=== PATIENT | male | born 1975 | race Caucasian/White ===

== ENCOUNTER 2017-02-09 20:04 | Inpatient (IN) | payer OTHER ==
[~2017-02-09] VITALS: Ht 193 cm; Wt 79.4 kg
--- NOTE | ~2017-02-09 | PN ---
Unit #: [id number] #: [id number] Patient: KAJAL PANTOJA [id number] [facility] [address] [place] [address] [id number] I MR#: [id number] NAME: KAJAL PANTOJA ROOM: [facility] Age: 41 Sex: M Admission Date: 02/09/2017 : 1975 Attending Physician: Letty Ordaz M.D. Admitting Physician: Letty Ordaz M.D. Primary Care Physician: Primary Care Physician Vanessa TOLLIVER PROGRESS NOTES DATE 02/13/2017 DISCUSSION Mr. Pantoja is a 41-year-old white male who was seen today and chart was reviewed and case was discussed with the staff. He has been anxious, withdrawn and rather seclusive to himself. Meanwhile, he has been cooperative with treatment recommendations and has been taking the medications and tolerating them fairly well with no reported side effects. MENTAL STATUS EXAMINATION Young white male who was casually dressed with fair personal hygiene and appears to be in no acute distress or discomfort. He was awake and alert on interaction with intact orientation. His mood was anxious with congruent affect. His speech is slow and goal-directed. He denies any suicidal or homicidal ideation and also denies any auditory or visual hallucinations. His insight and judgement remains slightly impaired. TREATMENT PLAN 1. Will continue on his current medications and treatment protocol. Will monitor his response to medications and make further adjustments as needed. 2. Will continue to follow up. Dictated by... Mirza Delgado/cora TD: 02/13/2017 18:37 JOB #: [id number] Unit #: [id number] #: [id number] Patient: KAJAL PANTOJA PROGRESS NOTES Page 1 of 1 X Letty Ordaz MD PROGRESS NOTE
--- NOTE | ~2017-02-09 | A ---
[facility] Nutrition Therapy DATE: 02/10/17 Patient: KAJAL PANTOJA Physician: KYRIE Address: [address] Room/Bed: [address], Zip: [place] [address] Admit Date: 02/09/17 Date of : [birth year] Height: 6 4 Weight: 174 79.3786 NUTRITIONAL ASSESSMENT: REASON: UNINTENTIONAL WEIGHT LOSS PATIENT ADMITTED FOR SI AND DEPRESSION PMH: CAD, ARTHRITIS, HTN Anthropometrics: HT: 76", WT: 175#, BMI: 21.3, %IBW: 87 Labs: NO LABS AVAILABLE Meds: DESYREL, BUSPAR, EFFEXOR-XR, SEROQUEL Assessment: PATIENT IS A 41 Y/O MALE ADMITTED FOR SI AND DEPRESSION. PATIENT IS CURRENTLY UNEMPLOYED, ON DISABILITY, LIVES AT A PENITENTIARY HOUSE, SMOKES 1 PPD, AND DENIES SUBSTANCE ABUSE FOR LAST 25 YEARS. HE HAS A HX OF MARIJUANA, ETOH, COCAINE, AND XANAX USE AND HE ALSO HAS A HX OF INPATIENT PSYCH HOSPITALIZATION. PER NEEDS ASSESSMENT PATIENT STATED A POOR APPETITE WITH NO RECENT WEIGHT LOSS, HE HASN'T EATEN IN A WEEK D/T WANTING TO STARVE HIMSELF, HE HAS NOT BEEN SLEEPING, AND HE HAS POOR PERSONAL HYGIENE. WEIGHT HX PER [employer] NOT WEIGHT CHANGE X 1 YEAR, AND HIS UBW IS ~170# FOR THE LAST 7 YEARS. THERE ARE NO CURRENT PO INTAKES AVAILABLE. THERE ARE NO SKIN OR GI ISSUES NOTED ATT, HOWEVER PATIENT DOES APPEAR TO HAVE SOME BUG BITES ON HIS FEET. HE IS CURRENTLY ON A REGULAR DIET. PATIENT'S BMI IS WITHIN A HEALTHY RANGE AND HE IS 87% OF HIS IBW %. Dx: POSSIBLE INADEQUATE PO INTAKES R/T DEPRESSION, SI AEB PATIENT POSSIBLY NOT EATING FOR LAST WEEK, TRYING TO STARVE HIMSELF Intervention: REGULAR DIET, MEDS PER MD, PSYCH Monitoring, Evaluation and Goals: 1. ADEQUATE PO INTAKES >50% OF MEALS 2. PREVENT, CORRECT MICRO/MACRO NUTRIENT DEFICIENCIES 3. WEIGHT; MAINTAIN CURRENT WEIGHT, PREVENT WEIGHT LOSS MONITOR: WEIGHTS, LABS, PO/FLUID INTAKES Recommendations: 1. CONTINUE REGULAR DIET TOLERATED. OFFER SNACKS BETWEEN MEALS. IF PATIENT HAS C/O HUNGER OR WOULD LIKE LARGER PORTIONS PLEASE SEND ORDER FOR LARGE PORTIONS AND RD WILL APPROVE [facility] Nutrition Therapy DATE: 02/10/17 Patient: KAJAL PANTOJA Physician: KYRIE Address: [address] Room/Bed: [address], Zip: [place] [address] Admit Date: 02/09/17 Date of : [birth year] Height: 6 4 Weight: 174 79.3786 2. ENCOURAGE ADEQUATE PO AND FLUID INTAKES 3. OBTAIN WEIGHTS ROUTINELY (EVERY 3-4 DAYS) 4. IF PO INTAKES ARE BELOW 50% OF MEALS PLEASE ORDER ENSURE BID TO PROMOTE ADEQUATE KCAL AND PROTEIN INTAKES RD TO F/U PER PROTOCOL AND PRN R/T PATIENT MILDLY COMPROMISED Respectfully, SAVI MCGEE, ERICH, LD [employer] [facility] cc: client file
--- NOTE | ~2017-02-09 | DS ---
Unit #: [id number] #: [id number] Patient: [facility]JA [id number] [facility] [address] [place] [address] [id number] I MR#: [id number] NAME: KAJAL PANTOJA ROOM: [facility] Age: 41 Sex: M Admission Date: 02/09/2017 : 1975 Discharge Date: 02/15/2017 Attending Physician: Letty Ordaz M.D. Primary Care Physician: Primary Care Physician No DISCHARGE SUMMARY REASON FOR ADMISSION Mr. Pantoja is a 41-year-old single white male, who is a resident of [place], [place], and is known to use from previous encounters, self-referred to the hospital on a voluntary basis. HISTORY OF PRESENT ILLNESS Please see initial psychiatric evaluation for details. PAST PSYCHIATRIC HISTORY Please see initial psychiatric evaluation for details. PAST MEDICAL HISTORY Please see initial psychiatric evaluation for details. HOSPITAL COURSE The patient was admitted to the Adult Psychiatric and Chemical Dependence Unit at [facility] celeste Reid, oriented to the hospital environment. Routine p.r.n. medications were initiated and he was started back on his home medications, and was closely monitored. He was initially seen to be anxious, withdrawn, and rather seclusive to himself though he was cooperative with the treatment recommendations, and was able to show a decent therapeutic response to the medications with improvement in his depression and anxiety, and was denying any suicidal ideations, intent, or plan and as such it was decided that he will be discharged home and will continue treatment on an outpatient basis. DISCHARGE DIAGNOSES Psychiatric: [place] I Major depressive disorder, recurrent, moderate, without psychotic features. [place] II [place] III Arthritis. [place] IV Moderate psychosocial stressors. [place] V CONDITION AT DISCHARGE Stable. PROGNOSIS Fair. Unit #: [id number] #: [id number] Patient: KAJAL PANTOJA Dictated by... Mirza Delgado/sage TD: 02/17/2017 07:46 JOB #: [id number] DISCHARGE SUMMARY Page 1 of 1 X Letty Ordaz MD DISCHARGE SUMMARY
--- NOTE | ~2017-02-09 | PN ---
Unit #: [id number] #: [id number] Patient: KAJAL PANTOJA [id number] [facility] [address] [place] [address] [id number] MR#: [id number] NAME: KAJAL PANTOJA ROOM: [facility] Age: 41 Sex: M Admission Date: 02/09/2017 : 1975 Attending Physician: Letty Ordaz M.D. Admitting Physician: Letty Ordaz M.D. Primary Care Physician: Primary Care Physician Vanessa TOLLIVER PROGRESS NOTES DATE 02/11/2017 DISCUSSION Mr. Pantoja is a 41-year-old white male who was seen today and chart was reviewed and case was discussed with the staff who report persistent depression and anxiety. Meanwhile, he has been cooperative with treatment recommendations and has been taking medications and tolerating them fairly well with no reported side effects. MENTAL STATUS EXAMINATION Middle-aged white male who was casually dressed with fair personal hygiene and appears to be in no acute distress or discomfort. He was awake and alert on interaction with intact orientation. His mood was anxious with congruent affect. His speech is slow and goal-directed. He denies any suicidal or homicidal ideations. His insight and judgement remains slightly impaired. TREATMENT PLAN 1. Will continue on his current medications and treatment protocol. Will monitor his response to the medications and make further adjustments as needed. 2. Will continue to follow up. Dictated by... Mirza Delgado/cora TD: 02/11/2017 19:51 JOB #: [id number] Unit #: [id number] #: [id number] Patient: KAJAL PANTOJA PROGRESS NOTES Page 1 of 1 X Letty Ordaz MD PROGRESS NOTE
--- NOTE | ~2017-02-09 | CO ---
Unit #: [id number] #: [id number] Patient: KAJAL PANTOJA [id number] [place] [address] [id number] MR#: [id number] NAME: KAJAL PANTOJA ROOM: [facility] Age: 41 Sex: M Admission Date: 02/09/2017 : 1975 Attending Physician: Letty Ordaz M.D. Consultation Date: 02/10/2017 CONSULTATION REPORT SUBJECTIVE Kajal is a 41-year-old who complained of itchy insect bites on the top of his feet. We have been asked to assess and treat. The patient had may be 1 or 2 small insect bites on the top of his feet. There was evidence of excoriation. We started hydrocortisone cream 1% b.i.d. p.r.n. Dictated by... Ros Whitaker P.A.-C. for Mirza Sneed/nola TD: 02/19/2017 16:11 JOB #: [id number] CONSULTATION REPORT Page 1 of 1 X Ros Whitaker CONSULTATION REPORT
--- NOTE | ~2017-02-09 | PN ---
Unit #: [id number] #: [id number] Patient: KAJAL PANTOJA [id number] [facility] [address] [place] [address] [id number] I MR#: [id number] NAME: KAJAL PANTOJA ROOM: [facility] Age: 41 Sex: M Admission Date: 02/09/2017 : 1975 Attending Physician: Letty Ordaz M.D. Admitting Physician: Letty Ordaz M.D. Primary Care Physician: Primary Care Physician Vanessa VEGA NOTES DATE February 14, 2017 DISCUSSION Mr. Pantoja is a 41-year-old white male, who was seen today and chart was reviewed and the case was discussed with the staff. He has been anxious, withdrawn, and rather seclusive to himself. Meanwhile, he has been cooperative with the treatment recommendations and he has been taking the medications and tolerating them fairly well with no reported side effects. MENTAL STATUS EXAMINATION Middle-aged white male, who was casually dressed with fair personal hygiene and appears to be in no acute distress or discomfort. He was awake and alert on interaction with intact orientation. His mood is anxious with a congruent affect. He denies any suicidal or homicidal ideations. His insight and judgment remain slightly impaired. TREATMENT PLAN 1. We will continue him on his current medications and treatment protocol, and will monitor his response to the medications, and make further adjustments as needed. 2. We will continue to followup. Dictated by... Mirza Delgado/sage TD: 02/15/2017 10:04 JOB #: [id number] Unit #: [id number] #: [id number] Patient: KAJAL PANTOJA UNRULY VEGA NOTES Page 1 of 1 X Letty Ordaz MD PROGRESS NOTE
--- NOTE | ~2017-02-09 | HP ---
Unit #: [id number] #: [id number] Patient: KAJAL PANTOJA [id number] [place] [address] [id number] I MR#: [id number] NAME: KAJAL PANTOJA ROOM: 63 Age: 41 Sex: M Admission Date: 02/09/2017 : 1975 Attending Physician: Letty Ordaz M.D. Admitting Physician: Letty Ordaz M.D. Primary Care Physician: Primary Care Physician No HISTORY AND PHYSICAL HISTORY OF PRESENT ILLNESS Kajal is a 41 year old admitted to [address] [place] [address] with depression and verbalizing wanting to hurt himself. He has had numerous admissions to this facility. PAST MEDICAL HISTORY 1. Alopecia. 2. Psoriasis. 3. Coronary artery disease. a. Angioplasty with stents. PAST SURGICAL HISTORY Bilateral hands. ALLERGIES No known drug allergies. SOCIAL HISTORY Smokes one pack per day. Denies alcohol and illicit drug use. FAMILY HISTORY Medically noncontributory. REVIEW OF SYSTEMS CONSTITUTIONAL: No fever or chills. HEENT: Denies any sore throat, ear pain or runny nose. CARDIOVASCULAR: Denies chest pain, irregular heart rhythm or palpitations. CHEST: Denies shortness of breath or cough. No hemoptysis. GASTROINTESTINAL: Denies nausea, vomiting, diarrhea or chronic constipation. ENDOCRINE: Denies history of increased thirst or urination. No recent significant weight loss or gain. GENITOURINARY: Denies dysuria, frequency, or hematuria. SKIN: Denies any rashes. HEMATOLOGIC: Denies history of increased bleeding or bruising. MUSCULOSKELETAL: Denies any hot, swollen joints. No generalized muscle pain. NEUROLOGIC: Denies problems with vision or speech. No frequent, severe headaches. No numbness, tingling or weakness in any extremities. Denies loss of bladder or bowel control. CURRENT MEDICATIONS 1. Nicotine patch 14 mg q. day. Unit #: [id number] #: [id number] Patient: KAJAL PANTOJA 2. Desyrel 100 mg q.h.s. p.r.n. 3. Milk of Magnesia p.r.n. 4. Maalox p.r.n. 5. Tylenol p.r.n. 6. BuSpar 10 mg t.i.d. 7. Effexor XR 150 mg b.i.d. 8. Seroquel 200 mg q.h.s. PHYSICAL EXAMINATION GENERAL: Alert, well nourished. No apparent distress. VITAL SIGNS: Blood pressure 132/84, heart rate 84, respirations 16, and temperature 98.6. WEIGHT: 175. HEIGHT: 6 feet 4 inches. SKIN: Warm and dry. His body is devoid of hair. Nails show significant pitting. Psoriatic plaques noted. HEENT: Normocephalic. TMs not viewed. Oral and nasal passages clear. Conjunctivae clear. PERRLA. EOMs intact. NECK: Supple without lymphadenopathy or thyromegaly. HEART: Regular rate and rhythm without murmur. LUNGS: Clear. ABDOMEN: Soft, nontender. : Not done. EXTREMITIES: No evidence of cyanosis, clubbing or edema. Moves all without focal deficit. NEUROLOGICAL: Grossly within normal limits. Cranial Nerves: II: Visual casanova are intact. III, IV AND : Extraocular movements are intact. Pupils are equal, round and reactive to light. V: Facial sensation is grossly normal. VII: Facial movements and expression are normal. VIII: Auditory acuity grossly intact. IX, X: Uvula is midline. Phonation is normal. XI: Patient shrugs shoulders and turns head normally. XII: Tongue protrudes in the midline. Sensory and Motor Function: Sensory and motor sensation is grossly normal. Motor: moves all extremities well. Coordination: Gait is normal. Deep Tendon Reflexes: Intact. IMPRESSION Psychiatric admission. RECOMMENDATIONS PSYCHIATRIC: Per psychiatrist. MEDICAL: I see no contraindication to participate in this facility's activities. MEDICAL PROGNOSIS Good. MEDICAL CONDITION Stable. Dictated by... Ros Whitaker P.A.-C. for Aj Boothe M.D. Unit #: [id number] #: [id number] Patient: KAJAL PANTOJA RONNI/catalinog TD: 02/10/2017 10:46 JOB #: [id number] HISTORY AND PHYSICAL Page 1 of 1 X Ros Whitaker HISTORY AND PHYSICAL
--- NOTE | ~2017-02-09 | PA ---
Unit #: [id number] #: [id number] Patient: KAJAL PANTOJA [id number] [facility] [address] [place] [address] [id number] I MR#: [id number] NAME: KAJAL PANTOJA ROOM: 63 Age: 41 Sex: M Admission Date: 02/09/2017 : 1975 Date of Assessment: 02/10/2017 Attending Physician: Letty Ordaz M.D. Admitting Physician: Letty Ordaz M.D. Primary Care Physician: Primary Care Physician No PSYCHIATRIC ASSESSMENT DATE OF SERVICE 02/10/2017. IDENTIFYING DATA Mr. Pantoja is a 41-year-old single white male, who is a resident of [place], [place], and is known to me from previous encounter, was self-referred to the hospital on a voluntary basis. CHIEF COMPLAINT "My medications are not working. I'm suicidal." HISTORY OF PRESENT ILLNESS Mr. Pantoja is a 41-year-old white male with long history of mood disorder, who was self-referred to the program stating that he has a lot of stuff that has been making him depressed and his medications are not working and he lives in a [facility] house and he is on parole and kept repeating throughout the assessment that he did not care anyone and that no one care about him and that he wrote a suicide note yesterday stating that he wanted to kill himself, and the staff at the [facility] found it and did not care and reports that he has tried to cut himself in the past and he walked out into the traffic on [address] today because he was tired of not having any money. He feels like he will not get off parole, even though he has not done anything wrong and he does not want to get in trouble and risk not coming off the parole and does not want to go back to half-way and does report increasing depression, anxiety, feelings of hopelessness and helplessness, and suicidal ideations with intent and plan and as such, recommendation for inpatient level of care for safety and stabilization was made and the patient stepped up to the inpatient unit. SUBSTANCE ABUSE HISTORY The patient reports history of experimentation with alcohol, cannabis, and cocaine in the past, but reports that he has not done any drugs in over 20 years. PAST PSYCHIATRIC HISTORY The patient has had history of multiple inpatient psychiatric hospitalizations at [facility] in addition to being at [facility], and has been diagnosed and treated for mood disorder and supposed to be on Seroquel, Effexor, and BuSpar, though it is not clear if he has been compliant with the medication as he does not appear to be showing a therapeutic response. However, he reports that he is currently active with [facility]. PAST MEDICAL HISTORY Unit #: [id number] #: [id number] Patient: KAJAL PANTOJA The patient's medical history is significant for arthritis. ALLERGIES No known medication allergies. PERSONAL AND SOCIAL HISTORY A 41-year-old white male, who reports that he is single, unemployed, disabled, and lives in a [facility] house and reports poor social support system. MENTAL STATUS EXAMINATION Middle-aged white male who was casually dressed with fair personal hygiene, appears to be in no acute distress or discomfort. He was awake and alert on interaction with intact orientation to time, place, and person. His mood was anxious and depressed with a congruent affect. His speech was slow and restricted in content. His thought processes were disorganized with some looseness of associations and suicidal ideations. His insight and judgment remain significantly impaired. DIAGNOSTIC IMPRESSION Psychiatric: Major depressive disorder, recurrent, moderate, without psychotic features. Medical: Arthritis. Stressors: Moderate psychosocial stressors. TREATMENT PLAN 1. The patient has presented with history of mood disorder, and has been decompensating and will need inpatient hospitalization for safety and stabilization. We will start him back on his home medications. We will adjust the medications and monitor response. 2. Supportive therapy was provided to the patient. 3. Safe, structured, and nourishing environment will be provided. ESTIMATED LENGTH OF STAY 4 to 5 days. ABILITY TO HELP SELF Limited. WILLINGNESS TO HELP SELF The patient appears to be willing to help self. STRENGTHS 1. Communicative. 2. Cooperative. PROBLEMS 1. Chronic dysphoric symptoms. 2. Poor social support system. DISCHARGE CRITERIA This will be contingent upon the patient's ability to show resolution of his depression and anxiety and his ability to stay safe to himself, particularly after discharge from the hospital. Dictated by... Letty Ordaz M.D. Unit #: [id number] #: [id number] Patient: KAJAL PANTOJA/nola TD: 02/10/2017 08:20 JOB #: [id number] PSYCHIATRIC ASSESSMENT Page 1 of 1 X Letty Ordaz MD PSYCHIATRIC ASSESSMENT
--- NOTE | ~2017-02-09 | TN ---
Unit #: [id number] #: [id number] Patient: KAJAL PANTOJA [id number] [place] [address] [id number] I MR#: [id number] NAME: KAJAL PANTOJA ROOM: [facility] Age: 41 Sex: M Admission Date: 02/09/2017 : 1975 Discharge Date: 02/15/2017 Attending Physician: Letty Ordaz M.D. Primary Care Physician: Primary Care Physician No LOC TRANSFER NOTE DATE OF SERVICE: 02/25/2017 HISTORY OF PRESENT ILLNESS Mr. Pantoja is a 41-year-old single white male with history of mood disorder, who is a resident of [place], [place], and was stepped down to the outpatient treatment program from the adult inpatient psychiatric unit, where he was hospitalized under my care on the Adult Psychiatric Unit at [facility]. He was brought to the hospital with suicidal ideation and stated that he got out and was supposed to start outpatient treatment program and he did not have any money to get there and find a way to get there and stated that it was too late and he needed to be re-evaluated, so he got re-evaluated and he reports that he gets suicidal a lot and I want to get that way and that he thinks outpatient help him as he can deny any current suicidal ideations, though he does report some persistent depressive symptoms and as such, recommendation for the patient to be enrolled into the intensive outpatient treatment program was made. SUBSTANCE ABUSE HISTORY The patient denies any alcohol or drug abuse. PAST PSYCHIATRIC HISTORY The patient has a history of multiple inpatient psychiatric hospitalizations across different facilities including being at [facility] and [facility], has been diagnosed and treated for mood disorder, but has been noncompliant with medications. Once again, he has been not taking his medications. PAST MEDICAL HISTORY History of arthritis and alopecia. ALLERGIES No known medication allergies. PERSONAL AND SOCIAL HISTORY A 41-year-old white male, who reports that he is single, unemployed, and lives in a retirement house and has poor social support system. MENTAL STATUS EXAMINATION Middle-aged white male, who was casually dressed with fair personal hygiene, appears to be in no acute distress or discomfort. He was awake and alert on interaction with intact orientation. His mood was anxious and depressed with a congruent affect. His speech was slow and goal directed. He denies any suicidal or homicidal ideations and also denies Unit #: [id number] #: [id number] Patient: KAJAL PANTOJA any auditory or visual hallucinations. His insight and judgment remain slightly impaired. DIAGNOSTIC IMPRESSION Psychiatric: Major depressive disorder, recurrent, moderate, without psychotic features. Medical: None. Stressors: Moderate psychosocial stressors. TREATMENT PLAN 1. The patient has presented with history of mood disorder. We will recommend enrolling him into the outpatient treatment program and maintaining and restarting her back on his home medications. We will adjust the medications and monitor response. 2. Supportive therapy was provided to the patient. 3. Safe, structured, and nourishing environment will be provided. ESTIMATED LENGTH OF STAY 14 to 21 days. ABILITY TO HELP SELF Limited. WILLINGNESS TO HELP SELF The patient appears to be willing to help self. STRENGTHS 1. Communicative. 2. Cooperative. PROBLEMS 1. Chronic dysphoric symptoms. 2. Poor social support system. DISCHARGE CRITERIA This will be contingent upon the patient's ability to show resolution of his depression and anxiety and his ability to stay safe to himself, particularly after discharge from the hospital. Dictated by... Mirza Delgado/nola TD: 02/26/2017 07:09 JOB #: [id number] Unit #: [id number] #: [id number] Patient: KAJAL PANTOJA LOC TRANSFER NOTE Page 1 of 1 X Letty Ordaz MD X LOC TRANSFER NOTE
--- NOTE | ~2017-02-09 | PN ---
Unit #: [id number] #: [id number] Patient: KAJAL PANTOJA [id number] [facility] [address] [place] [address] [id number] MR#: [id number] NAME: KAJAL PANTOJA ROOM: [facility] Age: 41 Sex: M Admission Date: 02/09/2017 : 1975 Attending Physician: Letty Ordaz M.D. Admitting Physician: Letty Ordaz M.D. Primary Care Physician: Primary Care Physician Vanessa VEGA NOTES DATE OF SERVICE 02/12/2017 DISCUSSION Mr. Pantoja is a 41-year-old white male who was seen today. Chart was reviewed and case was discussed with the staff. He remains anxious, withdrawn, depressed, and rather seclusive to himself with blunted affect and minimal interaction. Meanwhile, he has been taking the medications and tolerating them fairly well with no reported side effects. MENTAL STATUS EXAMINATION Middle-aged white male who is casually dressed with fair personal hygiene, appears to be in no acute distress or discomfort. He was awake and alert on interaction with intact orientation. His mood is anxious with congruent affect. Speech is slow and goal-directed. He denies any suicidal or homicidal ideations and also denies any auditory or visual hallucinations. His insight and judgment remain slightly impaired. TREATMENT PLAN 1. We will continue her on her current medications and treatment protocol. We will monitor her response to the medications and make further adjustments as needed. 2. We will continue to follow up. Dictated by... Mirza Delgado/catalinog TD: 02/12/2017 12:14 JOB #: [id number] Unit #: [id number] #: [id number] Patient: KAJAL PANTOJA PROGRESS NOTES Page 1 of 1 X Letty Ordaz MD PROGRESS NOTE
[2017-02-10 12:34] LABS: BASOPHIL% 0.1 % (0-2.5); EOSINOPHIL# 0.3 X10e3 (0-0.7); EOSINOPHIL% 7.5 % (0.0-7.0); HEMATOCRIT 42.6 % (38.0-50.0); HEMOGLOBIN 14.8 gm/dL (13.0-16.0); LYMPHOCYTE# 1.2 X10e3 (1.0-3.5); LYMPHOCYTE% 29.9 % (17.0-45.0); MEAN CELL VOLUME 104.8 FL (83-96); MEAN CORPUSCULAR HEMOGLOBIN 36.5 PG (28-34); MEAN CORPUSCULAR HGB CONC 34.9 g/dL (30-36); MONOCYTE# 0.3 X10e3 (0-1.0); MONOCYTE% 7.2 % (3.0-12.0); NEUTROPHIL# 2.2 X10e3 (1.5-7.1); NEUTROPHIL% 55.3 % (40-75); PLATELET COUNT 181 X10e3 (140-420); RED BLOOD COUNT 4.06 X10e (3.90-5.60); RED CELL DISTRIBUTION WIDTH 16.7 % (11.0-15.5); WHITE BLOOD COUNT 4.1 X10e3 (4.0-10.5)
[2017-02-10 12:36] LABS: BILIRUBIN,TOTAL 1.5 mg/dL (0.2-2.0); BUN/CREATININE RATIO 17.77; CALCIUM SERUM 9.3 mg/dL (8.4-10.2); CREATININE SERUM 0.9 mg/dL (0.6-1.4); POTASSIUM 4.2 mmol/L (3.5-5.1); PROTEIN TOTAL SERUM 7.5 g/dL (6.0-8.3)
[2017-02-10 12:39] LABS: DIFF IND NO
== END 2017-02-15 13:15 | disposition home or self-care (01) | DRG 885 ==
LOC: P2L 21:54
PROVIDERS: Psychiatry & Neurology Psychiatry
DX: F33.1 Major depressive disorder, recurrent, moderate (principal); M19.90 Unspecified osteoarthritis, unspecified site
CPT/HCPCS: 80053; 82947; 85025

== ENCOUNTER 2017-02-24 08:49 | Emergency (ER) | payer OTHER ==
[~2017-02-24] VITALS: Ht 193 cm; Wt 77.1 kg
== END 2017-02-24 11:56 | disposition home or self-care (01) ==
LOC: CED 08:49
DX: Z02.89 Encounter for other administrative examinations (principal); I10 Essential (primary) hypertension; F17.200 Nicotine dependence, unspecified, uncomplicated
CPT/HCPCS: 99283